=== PATIENT | male | born 1965 | race Asian ===

== ENCOUNTER 2020-02-23 16:57 | Inpatient (IN) | payer OTHER ==
[2020-02-23 17:37] VITALS: BMI 29.8
[2020-02-23] MEDS ORDERED: MAG HYDROX/AL HYDROX/SIMETH 30 ML UNIT-DOSE CUP PO PRN (18:52)
[2020-02-23] MEDS ORDERED: IBUPROFEN 400 MG TABLET (FP) PO PRN (18:52)
[2020-02-23] MEDS ORDERED: MENTHOL/PHENOL 1 EACH UD MM PRN (18:52)
[2020-02-23] MEDS ORDERED: NICOTINE POLACRILEX 2 MG GUM BUC PRN (18:52)
[2020-02-23] MEDS ORDERED: chlordiazePOXIDE HCL 25 MG CAPSULE PO PRN (18:52)
[2020-02-23] MEDS ORDERED: ACETAMINOPHEN 325 MG TABLET (FP) PO PRN ×2 (18:52)
[2020-02-23] MEDS ORDERED: MAGNESIUM HYDROX 2400MG/30ML ORAL SUSPENSION 30 ML CUP PO PRN (18:52)
[2020-02-23] MEDS ORDERED: ONDANSETRON *ODT* 4 MG TABLET SL PRN (18:52)
[2020-02-23] MEDS ORDERED: BISMUTH SUBSALICYLATE 524 MG/30 ML UD PO PRN (18:52)
[2020-02-23] MEDS ORDERED: MAGNESIUM CITRATE 300 ML BOTTLE PO PRN (18:52)
[2020-02-23] MEDS ORDERED: METHOCARBAMOL 500 MG TABLET PO PRN (18:52)
[2020-02-23] MEDS ORDERED: chlordiazePOXIDE HCL 25 MG CAPSULE PO ONE (20:00)
[2020-02-23] MEDS: NICOTINE 7 MG/24 HOURS TOPICAL PATCH TD SCH (20:42)
[2020-02-23] MEDS: chlordiazePOXIDE HCL 25 MG CAPSULE PO SCH ×2 (20:42→22:55)
[2020-02-23] MEDS: PRENATAL VITAMINS W/ FOLIC ACID TABLET (FP) PO SCH (20:44)
[2020-02-23] MEDS: hydrOXYzine PAMOATE 25 MG CAPSULE (FP) PO SCH (22:55)
[2020-02-23] MEDS: MELATONIN 5 MG TABLETS PO SCH (22:55)
[2020-02-23] MEDS: THIAMINE HCL 100 MG TABLET (FP) PO SCH (22:57)
[2020-02-24] MEDS: hydrOXYzine PAMOATE 25 MG CAPSULE (FP) PO SCH ×5 (06:39→22:27)
[2020-02-24] MEDS: chlordiazePOXIDE HCL 25 MG CAPSULE PO SCH ×2 (06:39→10:29)
[2020-02-24] MEDS: PRENATAL VITAMINS W/ FOLIC ACID TABLET (FP) PO SCH (10:29)
[2020-02-24] MEDS: NICOTINE 7 MG/24 HOURS TOPICAL PATCH TD SCH (10:29)
[2020-02-24 13:07] LABS: HEMATOCRIT 37.8 % (35.4-49); HEMOGLOBIN 12.2 GM/dL (11.7-16.9); MCH 33.4 pg (25.7-33.7); MCHC 32.2 g/dl (32.0-35.9); MEAN CELL VOLUME 103.6 fl (80-96); MEAN PLT VOLUME 12.1 fl (7.5-11.1); PLATELET COUNT 72 K/MM3 (134-434); RBC 3.65 M/mm3 (4.00-5.60); RDW 15.1 % (11.9-15.9); WHITE BLOOD COUNT 10.5 K/mm3 (4.0-10.0)
[2020-02-24 13:12] LABS: ALBUMIN 2.4 g/dl (3.4-5.0); BLOOD UREA NITROGEN 17.2 mg/dL (7-18); CALCIUM 7.6 mg/dL (8.5-10.1)
[2020-02-24 13:15] LABS: CREATININE 1.2 mg/dL (0.55-1.3)
[2020-02-24 13:16] LABS: BILIRUBIN,TOTAL 12.7 mg/dL (0.2-1); TOT PROT 6.5 g/dl (6.4-8.2)
[2020-02-24] MEDS ORDERED: LORazepam 1 MG TABLET PO PRN (13:29)
[2020-02-24 14:05] LABS: POTASSIUM 2.6 mmol/L (3.5-5.1)
[2020-02-24] MEDS ORDERED: POTASSIUM CHLORIDE ORAL LIQUID 20 MEQ/15 ML PO ONE ×2 (14:30→18:30)
[2020-02-24] MEDS: LORazepam 2 MG TABLET PO SCH ×2 (18:13→22:27)
[2020-02-24] MEDS: MELATONIN 5 MG TABLETS PO SCH (22:27)
[2020-02-24] MEDS: THIAMINE HCL 100 MG TABLET (FP) PO SCH (22:27)
[2020-02-25] MEDS ORDERED: chlordiazePOXIDE HCL 25 MG CAPSULE PO SCH (05:00)
[2020-02-25 06:14] VITALS: BP 102/72; PULSE 110; TEMP 96.8
[2020-02-25] MEDS: hydrOXYzine PAMOATE 25 MG CAPSULE (FP) PO SCH ×2 (07:24→10:03)
[2020-02-25] MEDS: LORazepam 2 MG TABLET PO SCH ×2 (07:24→10:03)
[2020-02-25] MEDS: PRENATAL VITAMINS W/ FOLIC ACID TABLET (FP) PO SCH (10:03)
[2020-02-25] MEDS: NICOTINE 7 MG/24 HOURS TOPICAL PATCH TD SCH (10:03)
[2020-02-26] MEDS ORDERED: chlordiazePOXIDE HCL 10 MG CAPSULE PO PRN
[2020-02-26] MEDS ORDERED: chlordiazePOXIDE HCL 10 MG CAPSULE PO SCH (05:00)
[2020-02-26] MEDS ORDERED: LORazepam 1 MG TABLET PO SCH (05:00)
[2020-02-27] MEDS ORDERED: LORazepam 0.5 MG TABLET PO PRN
[2020-02-27] MEDS ORDERED: LORazepam 0.5 MG TABLET PO SCH (05:00)
[2020-02-27] MEDS ORDERED: chlordiazePOXIDE HCL 10 MG CAPSULE PO SCH (05:00)
[2020-02-28] MEDS ORDERED: chlordiazePOXIDE HCL 10 MG CAPSULE PO ONE (05:00)
[2020-02-28] MEDS ORDERED: LORazepam 0.5 MG TABLET PO ONE (05:00)
== END 2020-02-25 10:43 | disposition short-term general hospital (02) | DRG 775 ==
LOC: YASAS 16:57 → Y3N 19:51
PROVIDERS: ADMIT Allergy & Immunology; ATTEND Allergy & Immunology
PROC: HZ2ZZZZ Detoxification Services for Substance Abuse Treatment (ICD-10-PCS; principal; 2020-02-23)
DX: F10.230 Alcohol dependence with withdrawal, uncomplicated (principal); F17.210 Nicotine dependence, cigarettes, uncomplicated; R00.0 Tachycardia, unspecified; R53.83 Other fatigue; R41.82 Altered mental status, unspecified; R60.0 Localized edema; K76.9 Liver disease, unspecified; E66.9 Obesity, unspecified; Z68.29 Body mass index [BMI] 29.0-29.9, adult; Z56.0 Unemployment, unspecified; Z59.0 Homelessness
CPT/HCPCS: 36415; 80053; 82962; 85027; 86780; 93005; 93010; C9803; U0003

== ENCOUNTER 2020-02-25 07:25 | Inpatient (IN) | payer OTHER ==
[2020-02-25] MEDS ORDERED: FOLIC ACID INJECTION - 1 MG, THIAMINE HCL 100 MG, MULTIVIT INJECTION ADULT 10 ML in SOD... IVPB ONE (07:32)
[2020-02-25] MEDS ORDERED: SODIUM CHLORIDE 1,000 ML IV STA (07:46)
[2020-02-25] MEDS ORDERED: VANCOMYCIN 1 GM in D5W (PRE-DOCKED) 1,000 MG/250 ML IVPB ONE (08:13)
[2020-02-25] MEDS ORDERED: CEFTRIAXONE 1,000 MG in DEXTROSE 5%-WATER - 50 ML IVPB ONE (08:13)
[2020-02-25] MEDS ORDERED: CEFTRIAXONE 1 GM/50 ML BAG ONE (08:22)
[2020-02-25 08:24] LABS: VENOUS BASE EXCESS 5.2 mmol/L (-2-2); VENOUS PCO2 39.9 mmHg (38-52); VENOUS PH 7.48 (7.310-7.410)
[2020-02-25 08:32] LABS: POTASSIUM 4.1 mmol/L (3.5-5.1)
[2020-02-25 08:35] LABS: ALBUMIN 2.2 g/dl (3.4-5.0); BLOOD UREA NITROGEN 15.4 mg/dL (7-18)
[2020-02-25 08:37] LABS: CALCIUM 8.2 mg/dL (8.5-10.1)
[2020-02-25 08:39] LABS: BILIRUBIN,TOTAL 14.6 mg/dL (0.2-1); CREATININE 0.9 mg/dL (0.55-1.3)
[2020-02-25 08:40] LABS: INR 1.42 (0.83-1.09)
[2020-02-25 08:41] LABS: TOT PROT 6.5 g/dl (6.4-8.2)
[2020-02-25 08:43] LABS: ACTIVATED PTT 29.8 SECONDS (25.2-36.5)
[2020-02-25 08:52] LABS: EPI CELLS 6 /uL (0-25.1); HYALINE CASTS 1 /uL (0-3.1); URINE APPEARANCE CLEAR; URINE BILIRUBIN 3+ (NEGATIVE); URINE COLOR DK YELLOW; URINE GLUCOSE (UA) NEGATIVE (NEGATIVE); URINE KETONE TRACE (NEGATIVE); URINE LEUK ESTERASE NEGATIVE (NEGATIVE); URINE NITRITE POSITIVE (NEGATIVE); URINE PROTEIN TRACE (NEGATIVE); URINE RBC 6 /uL (0-23.9); URINE WBC 6 /uL (0-25.8)
[2020-02-25 09:48] LABS: BASO % 0.4 % (0-2.0); EOS % 0.1 % (0-4.5); HEMATOCRIT 42.1 % (35.4-49); HEMOGLOBIN 13.4 GM/dL (11.7-16.9); LYMPH % 15.5 % (8-40); MCH 32.2 pg (25.7-33.7); MCHC 31.8 g/dl (32.0-35.9); MEAN CELL VOLUME 101.3 fl (80-96); MEAN PLT VOLUME 12.2 fl (7.5-11.1); MONO % 3.1 % (3.8-10.2); NEUT % 80.9 % (42.8-82.8); PLATELET COUNT 72 K/MM3 (134-434); RBC 4.16 M/mm3 (4.00-5.60); WHITE BLOOD COUNT 9.2 K/mm3 (4.0-10.0)
[2020-02-25 09:58] LABS: CHLORIDE 93 mmol/L (98-107); SODIUM 133 mmol/L (136-145)
[2020-02-25 10:01] LABS: BLOOD UREA NITROGEN 15.2 mg/dL (7-18); CALCIUM 7.5 mg/dL (8.5-10.1); CO2 26 mmol/L (21-32); GLUCOSE,RANDOM 108 mg/dL (74-106); MAGNESIUM 1.2 mg/dL (1.8-2.4)
[2020-02-25 10:04] LABS: CREATININE 0.9 mg/dL (0.55-1.3); SGOT/AST 323 U/L (15-37); SGPT/ALT 90 U/L (13-61)
[2020-02-25 10:05] LABS: TOT PROT 5.5 g/dl (6.4-8.2)
[2020-02-25 10:08] LABS: ALK PHOS 291 U/L (45-117); ANION GAP 13 MMOL/L (8-16); BILIRUBIN,TOTAL 12.4 mg/dL (0.2-1)
[2020-02-25] MEDS ORDERED: MAGNESIUM SULF 50% (8.12 MEQ/2 ML-1 GM VIAL) IVPB ONE ×2 (10:15→17:50)
[2020-02-25] MEDS ORDERED: MAGNESIUM SULFATE IN WATER 2 GM/50 ML IVPB IVPB ONE ×2 (10:23→18:02)
[2020-02-25] MEDS ORDERED: SODIUM CHLORIDE 0.9% 500 ML INFUS.BAG IV ONE (10:31)
[2020-02-25 10:41] LABS: POTASSIUM 2.9 mmol/L (3.5-5.1)
[2020-02-25] MEDS ORDERED: POTASSIUM CHLORIDE 20 MEQ PREMIX IVPB 100 ML IVPB SCH (10:45)
[2020-02-25] MEDS ORDERED: KCL 10 MEQ IVPB 20 MEQ/200 ML INFUS.BAG IVPB ONE (10:47)
[2020-02-25] MEDS: KCL 10 MEQ IVPB 10 MEQ/100 ML INFUS.BAG IVPB SCH ×4 (10:52→23:11)
[2020-02-25 11:35] LABS: URINE CRYSTALS BILIRUBIN CRYSTALS /hpf
[2020-02-25] MEDS ORDERED: LORazepam 2 MG/ML SDV VIAL ONE (12:36)
[2020-02-25 12:56] LABS: AMYLASE 57 U/L (25-115)
[2020-02-25] MEDS ORDERED: POTASSIUM CHLORIDE ORAL LIQUID 20 MEQ/15 ML PO ONE (14:44)
[2020-02-25 15:06] LABS: COCAINE, UR NEGATIVE ng/ml (CUTOFF=300); METHADONE, UR NEGATIVE ng/ml (CUTOFF=300); OPIATES, URI NEGATIVE ng/ml (CUTOFF=300); URINE AMPHETAMINES NEGATIVE ng/ml (CUTOFF=500); URINE BARBITURATES NEGATIVE ng/ml (CUTOFF=200)
[2020-02-25 15:07] LABS: PHENCYCLIDINE,URINE NEGATIVE ng/ml (CUTOFF=25)
[2020-02-25] MEDS ORDERED: POTASSIUM CHLORIDE ORAL LIQUID 20 MEQ/15 ML ONE (15:15)
[2020-02-25 15:22] LABS: URINE BENZODIAZEPINES POSITIVE ng/ml (CUTOFF=200)
[2020-02-25] MEDS ORDERED: THIAMINE HCL 200 MG/2 ML VIAL IVPB ONE (16:05)
[2020-02-25] MEDS ORDERED: THIAMINE HCL 200 MG/2 ML VIAL ONE (16:29)
[2020-02-25] MEDS ORDERED: HEPARIN NA (PORCINE) 5,000 UNITS/ML 1ML VIAL ONE (17:50)
[2020-02-25] MEDS ORDERED: PIPERACILLIN/TAZOB 3.375 GM 3.375 GM/50 ML BAG IVPB ONE (17:51)
[2020-02-25] MEDS: PIPERACILLIN/TAZOB 3.375 GM 3.375 GM in DEXTROSE 5%-WATER - 50 ML IVPB SCH (17:59)
[2020-02-25] MEDS: HEPARIN NA (PORCINE) 5,000 UNITS/ML 1ML VIAL SQ SCH (17:59)
[2020-02-25] MEDS ORDERED: PIPERACILLIN/TAZOB 3.375 GM 3.375 GM in DEXTROSE 5%-WATER - 50 ML IVPB SCH (18:00)
[2020-02-25] MEDS: LACTATED RINGERS SOLUTION 1,000 ML/1,000 ML INFUS.BAG IV SCH (18:25)
[2020-02-25] MEDS ORDERED: LACTULOSE 20 GM/30 ML UDC (FOR ORAL USE ONLY) ONE (18:26)
[2020-02-25] MEDS: LACTULOSE 20 GM/30 ML UDC (FOR ORAL USE ONLY) NGT SCH ×2 (18:29→22:37)
[2020-02-25] MEDS: LORazepam 1 MG TABLET PO SCH ×2 (19:22→21:33)
[2020-02-25 20:44] LABS: POTASSIUM 3.4 mmol/L (3.5-5.1)
[2020-02-25 20:47] LABS: BLOOD UREA NITROGEN 16.2 mg/dL (7-18); CALCIUM 7.4 mg/dL (8.5-10.1)
[2020-02-25] MEDS ORDERED: LORazepam 1 MG TABLET ONE (21:19)
[2020-02-25] MEDS ORDERED: KCL 10 MEQ IVPB 10 MEQ/100 ML INFUS.BAG IVPB ONE (21:20)
[2020-02-25] MEDS: LORazepam 1 MG TABLET PO PRN (22:35)
[2020-02-25] MEDS: PrednisoLONE 15 MG/5 ML UNIT-DOSE CUP NGT SCH (22:37)
[2020-02-25] MEDS: CHLORHEXIDINE GLUCONATE 4% CLEANSER FOR DECOLONIZATION TP SCH (22:37)
[2020-02-25] MEDS: MUPIROCIN 2% TOPICAL OINTMENT FOR DECOLONIZATION NS SCH (22:37)
[2020-02-25] MEDS ORDERED: MORPHINE SULFATE 2 MG/ML VIAL IM ONE (22:53)
[2020-02-25] MEDS ORDERED: morphine CARPU-JECT 2 MG/1 ML DISP.SYRIN IM ONE (22:53)
[2020-02-25] MEDS ORDERED: MORPHINE SULFATE 2 MG/ML VIAL ONE (22:56)
[2020-02-25] MEDS ORDERED: DEXTROSE 5%-WATER - 50 ML IVPB ONE ×2 (23:53→23:54)
[2020-02-25] MEDS ORDERED: PIPERACILLIN/TAZOBACTAM 3.375 GM VIAL IVPB ONE ×2 (23:53→23:54)
[2020-02-26] MEDS: LORazepam 1 MG TABLET PO SCH (00:14)
[2020-02-26] MEDS: KCL 10 MEQ IVPB 10 MEQ/100 ML INFUS.BAG IVPB SCH (00:14)
[2020-02-26] MEDS: PIPERACILLIN/TAZOB 3.375 GM 3.375 GM in DEXTROSE 5%-WATER - 50 ML IVPB SCH ×4 (01:47→22:58)
[2020-02-26] MEDS: LORazepam 1 MG TABLET PO PRN (02:25)
[2020-02-26] MEDS: HEPARIN NA (PORCINE) 5,000 UNITS/ML 1ML VIAL SQ SCH ×3 (02:25→18:21)
[2020-02-26] MEDS: LORazepam 0.5 MG TABLET PO SCH ×4 (04:38→22:58)
[2020-02-26] MEDS: LACTULOSE 20 GM/30 ML UDC (FOR ORAL USE ONLY) NGT SCH (07:08)
[2020-02-26 07:30] LABS: BASO % 0.1 % (0-2.0); EOS % 0.2 % (0-4.5); HEMATOCRIT 32.2 % (35.4-49); HEMOGLOBIN 10.1 GM/dL (11.7-16.9); LYMPH % 14.4 % (8-40); MCH 31.4 pg (25.7-33.7); MCHC 31.4 g/dl (32.0-35.9); MEAN CELL VOLUME 99.8 fl (80-96); MEAN PLT VOLUME 11.9 fl (7.5-11.1); MONO % 4.6 % (3.8-10.2); NEUT % 80.7 % (42.8-82.8); PLATELET COUNT 72 K/MM3 (134-434); POTASSIUM 3.3 mmol/L (3.5-5.1); RBC 3.22 M/mm3 (4.00-5.60); RDW 14.9 % (11.9-15.9); WHITE BLOOD COUNT 14.1 K/mm3 (4.0-10.0)
[2020-02-26 07:37] LABS: CALCIUM 7.7 mg/dL (8.5-10.1)
[2020-02-26 07:38] LABS: ALBUMIN 1.9 g/dl (3.4-5.0); BLOOD UREA NITROGEN 13.8 mg/dL (7-18); MAGNESIUM 1.9 mg/dL (1.8-2.4)
[2020-02-26 07:40] LABS: TOT PROT 5.4 g/dl (6.4-8.2)
[2020-02-26 07:41] LABS: CREATININE 0.8 mg/dL (0.55-1.3)
[2020-02-26 07:59] LABS: BILIRUBIN,TOTAL 15.1 mg/dL (0.2-1)
[2020-02-26 08:34] LABS: PHOSPHOROUS 0.6 mg/dL (2.5-4.9)
[2020-02-26] MEDS ORDERED: PIPERACILLIN/TAZOBACTAM 3.375 GM VIAL IVPB ONE ×3 (08:56→21:06)
[2020-02-26] MEDS ORDERED: DEXTROSE 5%-WATER - 50 ML IVPB ONE ×3 (08:56→21:07)
[2020-02-26] MEDS: THIAMINE HCL 200 MG/2 ML VIAL IVPB SCH (09:15)
[2020-02-26] MEDS ORDERED: POTASSIUM PHOSPHATE 40 MM in SODIUM CHLORIDE 500 ML IVPB ONE (09:30)
[2020-02-26] MEDS ORDERED: PT OWN MED DRAWER 7, Y5N ONE (10:12)
[2020-02-26] MEDS: FOLIC ACID 5 MG/1 ML SQ SCH (10:14)
[2020-02-26] MEDS: PrednisoLONE 15 MG/5 ML UNIT-DOSE CUP NGT SCH (10:14)
[2020-02-26] MEDS: MUPIROCIN 2% TOPICAL OINTMENT FOR DECOLONIZATION NS SCH ×2 (10:28→22:58)
[2020-02-26 12:36] LABS: INR 1.45 (0.83-1.09); PROTHROMBIN TIME (PATIENT) 17.6 SEC (9.7-13.0)
[2020-02-26] MEDS: LORazepam 2 MG/ML SDV VIAL IVPUSH PRN (22:05)
[2020-02-26] MEDS: LACTATED RINGERS SOLUTION 1,000 ML/1,000 ML INFUS.BAG IV SCH (22:58)
[2020-02-26] MEDS: PANTOPRAZOLE SODIUM 40 MG VIAL IVPUSH SCH (22:58)
[2020-02-26] MEDS: CHLORHEXIDINE GLUCONATE 4% CLEANSER FOR DECOLONIZATION TP SCH (22:58)
[2020-02-27] MEDS ORDERED: PIPERACILLIN/TAZOBACTAM 3.375 GM VIAL IVPB ONE ×4 (01:19→22:02)
[2020-02-27] MEDS ORDERED: DEXTROSE 5%-WATER - 50 ML IVPB ONE ×4 (01:19→22:02)
[2020-02-27] MEDS: PIPERACILLIN/TAZOB 3.375 GM 3.375 GM in DEXTROSE 5%-WATER - 50 ML IVPB SCH ×4 (02:24→21:00)
[2020-02-27] MEDS: LORazepam 2 MG/ML SDV VIAL IVPUSH PRN (04:00)
[2020-02-27] MEDS ORDERED: LORazepam 0.5 MG TABLET PO ONE (05:00)
[2020-02-27] MEDS: HEPARIN NA (PORCINE) 5,000 UNITS/ML 1ML VIAL SQ SCH ×3 (06:55→17:39)
[2020-02-27 07:10] LABS: BASO % 0.1 % (0-2.0); EOS % 1.3 % (0-4.5); HEMATOCRIT 31.9 % (35.4-49); HEMOGLOBIN 10.1 GM/dL (11.7-16.9); LYMPH % 22.7 % (8-40); MCH 31.7 pg (25.7-33.7); MCHC 31.6 g/dl (32.0-35.9); MEAN CELL VOLUME 100.3 fl (80-96); MEAN PLT VOLUME 10.2 fl (7.5-11.1); NEUT % 67.9 % (42.8-82.8); PLATELET COUNT 93 K/MM3 (134-434); RBC 3.18 M/mm3 (4.00-5.60); RDW 14.4 % (11.9-15.9); WHITE BLOOD COUNT 14.5 K/mm3 (4.0-10.0)
[2020-02-27 07:15] LABS: INR 1.29 (0.83-1.09); PROTHROMBIN TIME (PATIENT) 15.8 SEC (9.7-13.0)
[2020-02-27 07:16] LABS: ACTIVATED PTT 26.8 SECONDS (25.2-36.5)
[2020-02-27 07:19] LABS: ALBUMIN 1.8 g/dl (3.4-5.0); BLOOD UREA NITROGEN 12.2 mg/dL (7-18); MAGNESIUM 1.6 mg/dL (1.8-2.4)
[2020-02-27 07:21] LABS: CALCIUM 7.8 mg/dL (8.5-10.1)
[2020-02-27 07:22] LABS: CREATININE 0.7 mg/dL (0.55-1.3)
[2020-02-27 07:24] LABS: IRON SERUM 62 ug/dL (50-175); TOT PROT 5.2 g/dl (6.4-8.2)
[2020-02-27 07:25] LABS: TOTAL IRON BINDING CAPACITY 117 ug/dL (250-450)
[2020-02-27 07:28] LABS: POTASSIUM 2.7 mmol/L (3.5-5.1)
[2020-02-27 07:29] LABS: BILIRUBIN,TOTAL 15.4 mg/dL (0.2-1)
[2020-02-27] MEDS: FOLIC ACID 5 MG/1 ML SQ SCH (09:38)
[2020-02-27] MEDS: MUPIROCIN 2% TOPICAL OINTMENT FOR DECOLONIZATION NS SCH ×2 (09:38→22:00)
[2020-02-27] MEDS: NICOTINE 14 MG/24 HOURS TOPICAL PATCH TD SCH (09:39)
[2020-02-27] MEDS: PANTOPRAZOLE SODIUM 40 MG VIAL IVPUSH SCH ×2 (09:39→22:00)
[2020-02-27] MEDS: THIAMINE HCL 200 MG/2 ML VIAL IVPB SCH (09:40)
[2020-02-27] MEDS: LACTATED RINGERS SOLUTION 1,000 ML/1,000 ML INFUS.BAG IV SCH ×2 (09:40→16:46)
[2020-02-27] MEDS: PrednisoLONE 15 MG/5 ML UNIT-DOSE CUP NGT SCH ×2 (09:40→11:21)
[2020-02-27] MEDS ORDERED: NICOTINE 14 MG/24 HOURS TOPICAL PATCH TD SCH (10:00)
[2020-02-27] MEDS ORDERED: POTASSIUM PHOSPHATE 15 MM in DEXTROSE 5%-WATER - 250 ML IVPB ONE (10:13)
[2020-02-27] MEDS ORDERED: POTASSIUM CHLORIDE TABS 20 MEQ TABLET.ER (FP) PO ONE (10:14)
[2020-02-27] MEDS ORDERED: ACETAMINOPHEN 1000 MG/100 ML VIAL (NON FORMULARY) IVPB PRN (10:20)
[2020-02-27 10:32] LABS: ANISOCYTOSIS 1+; MACROCYTOSIS 1+; PLATELET ESTIMATE DECREASED
[2020-02-27] MEDS ORDERED: oxyCODONE HCL 5 MG TABLET PO PRN (10:42)
[2020-02-27] MEDS ORDERED: PT OWN MED DRAWER 7, Y5N ONE (18:07)
[2020-02-27] MEDS: RIFAXIMIN 550 MG TABLET (UD) PO SCH (22:00)
[2020-02-27] MEDS: CHLORHEXIDINE GLUCONATE 4% CLEANSER FOR DECOLONIZATION TP SCH (22:42)
[2020-02-28] MEDS ORDERED: LORazepam 0.5 MG TABLET PO PRN
[2020-02-28] MEDS: HEPARIN NA (PORCINE) 5,000 UNITS/ML 1ML VIAL SQ SCH ×3 (02:30→18:16)
[2020-02-28] MEDS: PIPERACILLIN/TAZOB 3.375 GM 3.375 GM in DEXTROSE 5%-WATER - 50 ML IVPB SCH ×4 (03:00→21:00)
[2020-02-28] MEDS ORDERED: PIPERACILLIN/TAZOBACTAM 3.375 GM VIAL IVPB ONE ×4 (03:05→22:04)
[2020-02-28] MEDS ORDERED: DEXTROSE 5%-WATER - 50 ML IVPB ONE ×4 (03:06→22:04)
[2020-02-28 07:06] LABS: HEMATOCRIT 29.4 % (35.4-49); HEMOGLOBIN 9.6 GM/dL (11.7-16.9); MCH 32.7 pg (25.7-33.7); MCHC 32.7 g/dl (32.0-35.9); MEAN PLT VOLUME 9.4 fl (7.5-11.1); PLATELET COUNT 111 K/MM3 (134-434); RBC 2.94 M/mm3 (4.00-5.60); RDW 14.8 % (11.9-15.9)
[2020-02-28 07:13] LABS: INR 1.2 (0.83-1.09); PROTHROMBIN TIME (PATIENT) 14.5 SEC (9.7-13.0)
[2020-02-28 07:16] LABS: ACTIVATED PTT 26.4 SECONDS (25.2-36.5)
[2020-02-28 07:24] LABS: ALBUMIN 1.6 g/dl (3.4-5.0); CALCIUM 7.3 mg/dL (8.5-10.1)
[2020-02-28 07:25] LABS: BLOOD UREA NITROGEN 12.5 mg/dL (7-18); MAGNESIUM 1.6 mg/dL (1.8-2.4)
[2020-02-28 07:27] LABS: BILIRUBIN,DIRECT 12.4 mg/dL (0.0-0.2)
[2020-02-28 07:28] LABS: CREATININE 0.6 mg/dL (0.55-1.3); PHOSPHOROUS 1.5 mg/dL (2.5-4.9)
[2020-02-28 07:29] LABS: TOT PROT 4.8 g/dl (6.4-8.2)
[2020-02-28] MEDS ORDERED: POTASSIUM PHOSPHATE 30 MM in SODIUM CHLORIDE 500 ML IVPB ONE (08:15)
[2020-02-28] MEDS ORDERED: MAGNESIUM 1GM/D5W - 2 GM/200 ML IVPB IVPB ONE (08:15)
[2020-02-28] MEDS: KCL 10 MEQ IVPB 10 MEQ/100 ML INFUS.BAG IVPB SCH ×3 (08:38→10:46)
[2020-02-28 08:42] LABS: POTASSIUM 2.8 mmol/L (3.5-5.1)
[2020-02-28] MEDS: MAGNESIUM 1GM/D5W - 1 GM/100 ML IVPB IVPB SCH ×2 (08:51→10:06)
[2020-02-28] MEDS ORDERED: PT OWN MED DRAWER 7, Y5N ONE ×2 (09:05→11:09)
[2020-02-28] MEDS: PrednisoLONE 15 MG/5 ML UNIT-DOSE CUP NGT SCH (09:10)
[2020-02-28] MEDS: NICOTINE 14 MG/24 HOURS TOPICAL PATCH TD SCH (09:10)
[2020-02-28] MEDS: RIFAXIMIN 550 MG TABLET (UD) PO SCH ×2 (09:10→22:00)
[2020-02-28] MEDS: PANTOPRAZOLE SODIUM 40 MG VIAL IVPUSH SCH ×2 (09:10→22:00)
[2020-02-28] MEDS: THIAMINE HCL 200 MG/2 ML VIAL IVPB SCH (09:11)
[2020-02-28] MEDS: MUPIROCIN 2% TOPICAL OINTMENT FOR DECOLONIZATION NS SCH ×2 (09:11→22:00)
[2020-02-28] MEDS: FOLIC ACID 5 MG/1 ML SQ SCH (11:10)
[2020-02-28 17:11] LABS: POTASSIUM 3.6 mmol/L (3.5-5.1)
[2020-02-28 17:12] LABS: CALCIUM 7.1 mg/dL (8.5-10.1)
[2020-02-28 17:13] LABS: ALBUMIN 1.7 g/dl (3.4-5.0); BLOOD UREA NITROGEN 9.4 mg/dL (7-18)
[2020-02-28 17:16] LABS: CREATININE 0.7 mg/dL (0.55-1.3)
[2020-02-28 17:18] LABS: TOT PROT 5.2 g/dl (6.4-8.2)
[2020-02-28] MEDS ORDERED: POTASSIUM CHLORIDE ORAL LIQUID 20 MEQ/15 ML PO ONE (17:27)
[2020-02-28] MEDS: LACTATED RINGERS SOLUTION 1,000 ML/1,000 ML INFUS.BAG IV SCH (18:16)
[2020-02-28] MEDS: CHLORHEXIDINE GLUCONATE 4% CLEANSER FOR DECOLONIZATION TP SCH (22:00)
[2020-02-29] MEDS: HEPARIN NA (PORCINE) 5,000 UNITS/ML 1ML VIAL SQ SCH ×3 (02:00→17:59)
[2020-02-29] MEDS: PIPERACILLIN/TAZOB 3.375 GM 3.375 GM in DEXTROSE 5%-WATER - 50 ML IVPB SCH ×4 (03:00→22:30)
[2020-02-29] MEDS ORDERED: PIPERACILLIN/TAZOBACTAM 3.375 GM VIAL IVPB ONE ×4 (03:22→22:19)
[2020-02-29] MEDS ORDERED: DEXTROSE 5%-WATER - 50 ML IVPB ONE ×4 (03:22→22:19)
[2020-02-29] MEDS ORDERED: PT OWN MED DRAWER 7, Y5N ONE ×2 (09:52→09:53)
[2020-02-29] MEDS: FOLIC ACID 5 MG/1 ML SQ SCH (09:57)
[2020-02-29] MEDS: MUPIROCIN 2% TOPICAL OINTMENT FOR DECOLONIZATION NS SCH ×2 (09:57→22:30)
[2020-02-29] MEDS: PANTOPRAZOLE SODIUM 40 MG VIAL IVPUSH SCH ×2 (09:58→22:30)
[2020-02-29] MEDS: THIAMINE HCL 200 MG/2 ML VIAL IVPB SCH (09:58)
[2020-02-29] MEDS: RIFAXIMIN 550 MG TABLET (UD) PO SCH ×2 (09:58→22:30)
[2020-02-29] MEDS: NICOTINE 14 MG/24 HOURS TOPICAL PATCH TD SCH (11:24)
[2020-02-29] MEDS: PrednisoLONE 15 MG/5 ML UNIT-DOSE CUP NGT SCH (11:24)
[2020-02-29 14:07] LABS: TRANSGLUTAMINASE IGA < 2 U/mL (0-3); TRANSGLUTAMINASE IGG 8 U/mL (0-5)
[2020-02-29] MEDS: LACTATED RINGERS SOLUTION 1,000 ML/1,000 ML INFUS.BAG IV SCH (17:59)
[2020-02-29] MEDS: CHLORHEXIDINE GLUCONATE 4% CLEANSER FOR DECOLONIZATION TP SCH (22:30)
[2020-02-29] MEDS: VANCOMYCIN 250 MG/5 ML ORAL SOLUTION PO SCH (23:12)
[2020-03-01] MEDS: PIPERACILLIN/TAZOB 3.375 GM 3.375 GM in DEXTROSE 5%-WATER - 50 ML IVPB SCH ×4 (03:45→21:27)
[2020-03-01] MEDS: HEPARIN NA (PORCINE) 5,000 UNITS/ML 1ML VIAL SQ SCH ×3 (03:45→18:14)
[2020-03-01] MEDS ORDERED: PIPERACILLIN/TAZOBACTAM 3.375 GM VIAL IVPB ONE ×4 (03:57→20:50)
[2020-03-01] MEDS ORDERED: DEXTROSE 5%-WATER - 50 ML IVPB ONE ×4 (03:57→20:51)
[2020-03-01] MEDS: VANCOMYCIN 250 MG/5 ML ORAL SOLUTION PO SCH ×4 (06:23→23:43)
[2020-03-01 07:41] LABS: INR 1.21 (0.83-1.09); PROTHROMBIN TIME (PATIENT) 14.6 SEC (9.7-13.0)
[2020-03-01] MEDS ORDERED: PT OWN MED DRAWER 7, Y5N ONE (08:52)
[2020-03-01] MEDS: PrednisoLONE 15 MG/5 ML UNIT-DOSE CUP NGT SCH (09:14)
[2020-03-01] MEDS: PANTOPRAZOLE SODIUM 40 MG VIAL IVPUSH SCH (09:14)
[2020-03-01] MEDS: THIAMINE HCL 200 MG/2 ML VIAL IVPB SCH (09:14)
[2020-03-01] MEDS: RIFAXIMIN 550 MG TABLET (UD) PO SCH ×2 (09:14→21:27)
[2020-03-01] MEDS: FOLIC ACID 5 MG/1 ML SQ SCH (09:15)
[2020-03-01] MEDS: MUPIROCIN 2% TOPICAL OINTMENT FOR DECOLONIZATION NS SCH (09:15)
[2020-03-01] MEDS: NICOTINE 14 MG/24 HOURS TOPICAL PATCH TD SCH (09:15)
[2020-03-01] MEDS ORDERED: ONDANSETRON 4 MG/2 ML VIAL IVPUSH PRN (14:39)
[2020-03-01] MEDS: LORazepam 2 MG/ML SDV VIAL IVPUSH PRN (15:00)
[2020-03-01] MEDS: LACTATED RINGERS SOLUTION 1,000 ML/1,000 ML INFUS.BAG IV SCH (18:13)
[2020-03-01] MEDS: CHLORHEXIDINE GLUCONATE 4% CLEANSER FOR DECOLONIZATION TP SCH (21:28)
[2020-03-02] MEDS ORDERED: PIPERACILLIN/TAZOBACTAM 3.375 GM VIAL IVPB ONE ×4 (01:39→20:56)
[2020-03-02] MEDS ORDERED: DEXTROSE 5%-WATER - 50 ML IVPB ONE ×4 (01:39→20:56)
[2020-03-02] MEDS: HEPARIN NA (PORCINE) 5,000 UNITS/ML 1ML VIAL SQ SCH ×3 (02:15→18:06)
[2020-03-02] MEDS: PIPERACILLIN/TAZOB 3.375 GM 3.375 GM in DEXTROSE 5%-WATER - 50 ML IVPB SCH ×4 (02:16→21:41)
[2020-03-02] MEDS: VANCOMYCIN 250 MG/5 ML ORAL SOLUTION PO SCH ×4 (06:10→23:20)
[2020-03-02 07:22] LABS: POTASSIUM 4.1 mmol/L (3.5-5.1)
[2020-03-02 07:26] LABS: BASO % 0.7 % (0-2.0); EOS % 0.6 % (0-4.5); HEMATOCRIT 33.5 % (35.4-49); HEMOGLOBIN 10.8 GM/dL (11.7-16.9); LYMPH % 26.7 % (8-40); MCH 33.1 pg (25.7-33.7); MCHC 32.2 g/dl (32.0-35.9); MEAN CELL VOLUME 102.7 fl (80-96); MEAN PLT VOLUME 10.5 fl (7.5-11.1); MONO % 8.9 % (3.8-10.2); NEUT % 63.1 % (42.8-82.8); PLATELET COUNT 132 K/MM3 (134-434); RBC 3.26 M/mm3 (4.00-5.60); RDW 16.7 % (11.9-15.9); WHITE BLOOD COUNT 11.6 K/mm3 (4.0-10.0)
[2020-03-02 07:29] LABS: ALBUMIN 1.6 g/dl (3.4-5.0); BLOOD UREA NITROGEN 7.8 mg/dL (7-18); CALCIUM 7.2 mg/dL (8.5-10.1); MAGNESIUM 1.5 mg/dL (1.8-2.4)
[2020-03-02 07:32] LABS: CREATININE 0.7 mg/dL (0.55-1.3); PHOSPHOROUS 2.1 mg/dL (2.5-4.9)
[2020-03-02 07:34] LABS: TOT PROT 5.1 g/dl (6.4-8.2)
[2020-03-02] MEDS ORDERED: MAGNESIUM SULF 50% (8.12 MEQ/2 ML-1 GM VIAL) IVPB ONE (08:30)
[2020-03-02] MEDS ORDERED: PT OWN MED DRAWER 7, Y5N ONE ×2 (10:09→21:46)
[2020-03-02] MEDS: FOLIC ACID 5 MG/1 ML SQ SCH (10:29)
[2020-03-02] MEDS: NICOTINE 14 MG/24 HOURS TOPICAL PATCH TD SCH (10:31)
[2020-03-02] MEDS: RIFAXIMIN 550 MG TABLET (UD) PO SCH ×2 (10:32→21:41)
[2020-03-02] MEDS: MULTIVITAMINS (DAILY MVI) TABLET (FP) PO SCH (10:33)
[2020-03-02] MEDS: THIAMINE HCL 200 MG/2 ML VIAL IVPB SCH (10:37)
[2020-03-02 11:13] LABS: ANISOCYTOSIS 1+; MACROCYTOSIS 1+; PLATELET ESTIMATE DECREASED; TARGET CELLS 1+
[2020-03-02] MEDS: CHLORHEXIDINE GLUCONATE 4% CLEANSER FOR DECOLONIZATION TP SCH (21:41)
[2020-03-03] MEDS ORDERED: PIPERACILLIN/TAZOBACTAM 3.375 GM VIAL IVPB ONE ×4 (00:27→21:11)
[2020-03-03] MEDS ORDERED: DEXTROSE 5%-WATER - 50 ML IVPB ONE ×4 (00:28→21:11)
[2020-03-03] MEDS: HEPARIN NA (PORCINE) 5,000 UNITS/ML 1ML VIAL SQ SCH ×3 (02:20→17:42)
[2020-03-03] MEDS: PIPERACILLIN/TAZOB 3.375 GM 3.375 GM in DEXTROSE 5%-WATER - 50 ML IVPB SCH ×4 (02:20→21:45)
[2020-03-03] MEDS: VANCOMYCIN 250 MG/5 ML ORAL SOLUTION PO SCH ×4 (05:52→23:06)
[2020-03-03] MEDS ORDERED: PT OWN MED DRAWER 7, Y5N ONE ×3 (05:53→09:27)
[2020-03-03 06:48] LABS: POTASSIUM 3.5 mmol/L (3.5-5.1)
[2020-03-03 06:50] LABS: ALBUMIN 1.5 g/dl (3.4-5.0); CALCIUM 7.5 mg/dL (8.5-10.1)
[2020-03-03 06:54] LABS: CREATININE 0.7 mg/dL (0.55-1.3)
[2020-03-03 06:55] LABS: BILIRUBIN,TOTAL 12.7 mg/dL (0.2-1); TOT PROT 4.9 g/dl (6.4-8.2)
[2020-03-03 07:16] LABS: BASO % 0.8 % (0-2.0); EOS % 1.4 % (0-4.5); HEMATOCRIT 30.9 % (35.4-49); HEMOGLOBIN 10.2 GM/dL (11.7-16.9); LYMPH % 20.9 % (8-40); MCH 33.2 pg (25.7-33.7); MCHC 32.8 g/dl (32.0-35.9); MEAN CELL VOLUME 101.3 fl (80-96); MEAN PLT VOLUME 10.2 fl (7.5-11.1); MONO % 6.4 % (3.8-10.2); NEUT % 70.5 % (42.8-82.8); PLATELET COUNT 153 K/MM3 (134-434); RBC 3.05 M/mm3 (4.00-5.60); RDW 16.2 % (11.9-15.9); WHITE BLOOD COUNT 12.9 K/mm3 (4.0-10.0)
[2020-03-03 08:18] LABS: MAGNESIUM 1.7 mg/dL (1.8-2.4)
[2020-03-03 08:22] LABS: PHOSPHOROUS 2.2 mg/dL (2.5-4.9)
[2020-03-03] MEDS: FOLIC ACID 5 MG/1 ML SQ SCH (09:48)
[2020-03-03] MEDS: NICOTINE 14 MG/24 HOURS TOPICAL PATCH TD SCH (09:49)
[2020-03-03] MEDS: RIFAXIMIN 550 MG TABLET (UD) PO SCH ×2 (09:50→23:06)
[2020-03-03] MEDS: MULTIVITAMINS (DAILY MVI) TABLET (FP) PO SCH (09:50)
[2020-03-03] MEDS: THIAMINE HCL 200 MG/2 ML VIAL IVPB SCH (09:50)
[2020-03-03 10:53] LABS: ANISOCYTOSIS 2+; MACROCYTOSIS 1+; PLATELET ESTIMATE DECREASED; TEAR DROP CELLS 1+; TOXIC GRANULATION 2+
[2020-03-03 11:09] LABS: INR 1.13 (0.83-1.09); PROTHROMBIN TIME (PATIENT) 13.9 SEC (9.7-13.0)
[2020-03-03 11:25] LABS: ALBUMIN 1.6 g/dl (3.4-5.0)
[2020-03-03 11:28] LABS: BILIRUBIN,DIRECT 11.8 mg/dL (0.0-0.2)
[2020-03-03 11:30] LABS: BILIRUBIN,TOTAL 13.7 mg/dL (0.2-1); TOT PROT 5.2 g/dl (6.4-8.2)
[2020-03-03 21:19] LABS: INR 1.15 (0.83-1.09); PROTHROMBIN TIME (PATIENT) 14.1 SEC (9.7-13.0)
[2020-03-03 21:33] LABS: ALBUMIN 1.6 g/dl (3.4-5.0)
[2020-03-03 21:35] LABS: BILIRUBIN,DIRECT 12.1 mg/dL (0.0-0.2)
[2020-03-03 21:38] LABS: BILIRUBIN,TOTAL 14.3 mg/dL (0.2-1); TOT PROT 5.3 g/dl (6.4-8.2)
[2020-03-03] MEDS: CHLORHEXIDINE GLUCONATE 4% CLEANSER FOR DECOLONIZATION TP SCH (22:05)
[2020-03-03] MEDS: guaiFENesin 200 MG/10 ML 10 ML UNIT-DOSE CUPS PO PRN (23:06)
[2020-03-04] MEDS ORDERED: DEXTROSE 5%-WATER - 50 ML IVPB ONE ×4 (01:10→22:52)
[2020-03-04] MEDS ORDERED: PIPERACILLIN/TAZOBACTAM 3.375 GM VIAL IVPB ONE ×4 (01:10→22:52)
[2020-03-04] MEDS: PIPERACILLIN/TAZOB 3.375 GM 3.375 GM in DEXTROSE 5%-WATER - 50 ML IVPB SCH ×4 (02:10→23:00)
[2020-03-04] MEDS: HEPARIN NA (PORCINE) 5,000 UNITS/ML 1ML VIAL SQ SCH ×4 (02:10→22:59)
[2020-03-04] MEDS: VANCOMYCIN 250 MG/5 ML ORAL SOLUTION PO SCH ×3 (06:14→17:32)
[2020-03-04 07:45] LABS: EOS % 0.8 % (0-4.5); HEMATOCRIT 32.1 % (35.4-49); HEMOGLOBIN 10.6 GM/dL (11.7-16.9); INR 1.14 (0.83-1.09); LYMPH % 17.7 % (8-40); MCH 33.2 pg (25.7-33.7); MCHC 33.1 g/dl (32.0-35.9); MEAN CELL VOLUME 100.5 fl (80-96); MEAN PLT VOLUME 10.1 fl (7.5-11.1); MONO % 4.8 % (3.8-10.2); NEUT % 75.7 % (42.8-82.8); PLATELET COUNT 186 K/MM3 (134-434); RBC 3.19 M/mm3 (4.00-5.60); RDW 16.7 % (11.9-15.9); WHITE BLOOD COUNT 15.9 K/mm3 (4.0-10.0)
[2020-03-04 08:08] LABS: MAGNESIUM 1.6 mg/dL (1.8-2.4)
[2020-03-04 08:09] LABS: ALBUMIN 1.6 g/dl (3.4-5.0)
[2020-03-04 08:11] LABS: BILIRUBIN,DIRECT 11.7 mg/dL (0.0-0.2); PHOSPHOROUS 2.5 mg/dL (2.5-4.9)
[2020-03-04 08:12] LABS: SGOT/AST 89 U/L (15-37); SGPT/ALT 72 U/L (13-61)
[2020-03-04 08:13] LABS: BILIRUBIN,TOTAL 14.5 mg/dL (0.2-1); TOT PROT 5.1 g/dl (6.4-8.2)
[2020-03-04 08:14] LABS: ALK PHOS 272 U/L (45-117)
[2020-03-04] MEDS ORDERED: PT OWN MED DRAWER 7, Y5N ONE (09:57)
[2020-03-04] MEDS: THIAMINE HCL 200 MG/2 ML VIAL IVPB SCH (10:07)
[2020-03-04 10:08] LABS: CHLORIDE 102 mmol/L (98-107); POTASSIUM 3.5 mmol/L (3.5-5.1); SODIUM 136 mmol/L (136-145)
[2020-03-04] MEDS: RIFAXIMIN 550 MG TABLET (UD) PO SCH ×2 (10:08→23:00)
[2020-03-04] MEDS: MULTIVITAMINS (DAILY MVI) TABLET (FP) PO SCH (10:08)
[2020-03-04] MEDS: NICOTINE 14 MG/24 HOURS TOPICAL PATCH TD SCH (10:09)
[2020-03-04 10:11] LABS: BLOOD UREA NITROGEN 6.8 mg/dL (7-18); CALCIUM 7.8 mg/dL (8.5-10.1); CO2 26 mmol/L (21-32); GLUCOSE,RANDOM 70 mg/dL (74-106)
[2020-03-04 10:13] LABS: CREATININE 0.8 mg/dL (0.55-1.3)
[2020-03-04] MEDS: FOLIC ACID 5 MG/1 ML SQ SCH (13:11)
[2020-03-04] MEDS: LORazepam 2 MG/ML SDV VIAL IVPUSH PRN (13:14)
[2020-03-04] MEDS ORDERED: DISP SYRIN IM ONE (15:32)
[2020-03-04] MEDS ORDERED: HEPATITIS A IM ONE (15:32)
[2020-03-04] MEDS ORDERED: [UNRECOGNIZED DRUG - OTHER] IM ONE (15:32)
[2020-03-04 19:54] LABS: INR 1.2 (0.83-1.09); PROTHROMBIN TIME (PATIENT) 14.5 SEC (9.7-13.0)
[2020-03-04 20:03] LABS: ALBUMIN 1.6 g/dl (3.4-5.0)
[2020-03-04 20:06] LABS: BILIRUBIN,DIRECT 12.9 mg/dL (0.0-0.2)
[2020-03-04 20:08] LABS: TOT PROT 5.4 g/dl (6.4-8.2)
[2020-03-04 20:31] LABS: BILIRUBIN,TOTAL 15.4 mg/dL (0.2-1)
[2020-03-05] MEDS: VANCOMYCIN 250 MG/5 ML ORAL SOLUTION PO SCH ×4 (00:30→17:21)
[2020-03-05] MEDS: CHLORHEXIDINE GLUCONATE 4% CLEANSER FOR DECOLONIZATION TP SCH ×2 (02:11→21:46)
[2020-03-05] MEDS ORDERED: DEXTROSE 5%-WATER - 50 ML IVPB ONE ×4 (03:37→21:38)
[2020-03-05] MEDS ORDERED: PIPERACILLIN/TAZOBACTAM 3.375 GM VIAL IVPB ONE ×4 (03:37→21:38)
[2020-03-05] MEDS: PIPERACILLIN/TAZOB 3.375 GM 3.375 GM in DEXTROSE 5%-WATER - 50 ML IVPB SCH ×4 (03:44→21:46)
[2020-03-05] MEDS: HEPARIN NA (PORCINE) 5,000 UNITS/ML 1ML VIAL SQ SCH ×3 (06:30→21:46)
[2020-03-05 07:45] LABS: EOS % 0.9 % (0-4.5); HEMATOCRIT 32.7 % (35.4-49); HEMOGLOBIN 10.7 GM/dL (11.7-16.9); LYMPH % 19.9 % (8-40); MCH 33.2 pg (25.7-33.7); MCHC 32.8 g/dl (32.0-35.9); MEAN CELL VOLUME 101.1 fl (80-96); MEAN PLT VOLUME 9.8 fl (7.5-11.1); MONO % 4.3 % (3.8-10.2); NEUT % 73.9 % (42.8-82.8); PLATELET COUNT 207 K/MM3 (134-434); RBC 3.23 M/mm3 (4.00-5.60); RDW 16.2 % (11.9-15.9); WHITE BLOOD COUNT 18.3 K/mm3 (4.0-10.0)
[2020-03-05 07:50] LABS: INR 1.22 (0.83-1.09); PROTHROMBIN TIME (PATIENT) 14.7 SEC (9.7-13.0)
[2020-03-05 08:13] LABS: POTASSIUM 3.8 mmol/L (3.5-5.1)
[2020-03-05 08:17] LABS: ALBUMIN 1.6 g/dl (3.4-5.0); BLOOD UREA NITROGEN 6.1 mg/dL (7-18); CALCIUM 7.9 mg/dL (8.5-10.1)
[2020-03-05 08:20] LABS: BILIRUBIN,DIRECT 12.7 mg/dL (0.0-0.2); CREATININE 0.8 mg/dL (0.55-1.3)
[2020-03-05 08:22] LABS: TOT PROT 5.4 g/dl (6.4-8.2)
[2020-03-05 08:38] LABS: BILIRUBIN,TOTAL 15.9 mg/dL (0.2-1)
[2020-03-05] MEDS ORDERED: PT OWN MED DRAWER 7, Y5N ONE (09:17)
[2020-03-05] MEDS: FOLIC ACID 5 MG/1 ML SQ SCH (09:19)
[2020-03-05] MEDS: NICOTINE 14 MG/24 HOURS TOPICAL PATCH TD SCH (09:21)
[2020-03-05] MEDS: MULTIVITAMINS (DAILY MVI) TABLET (FP) PO SCH (09:21)
[2020-03-05] MEDS: THIAMINE HCL 200 MG/2 ML VIAL IVPB SCH (09:21)
[2020-03-05] MEDS: RIFAXIMIN 550 MG TABLET (UD) PO SCH ×2 (09:23→21:46)
[2020-03-05 16:28] LABS: ALBUMIN 1.5 g/dl (3.4-5.0); CALCIUM 7.8 mg/dL (8.5-10.1)
[2020-03-05 16:29] LABS: BLOOD UREA NITROGEN 5.8 mg/dL (7-18); POTASSIUM 3.4 mmol/L (3.5-5.1)
[2020-03-05 16:32] LABS: CREATININE 0.7 mg/dL (0.55-1.3)
[2020-03-05 16:33] LABS: TOT PROT 5.4 g/dl (6.4-8.2)
[2020-03-05 16:41] VITALS: BMI 30.1
[2020-03-05 16:42] LABS: BILIRUBIN,TOTAL 15.1 mg/dL (0.2-1)
[2020-03-05 21:05] LABS: INR 1.18 (0.83-1.09); PROTHROMBIN TIME (PATIENT) 14.5 SEC (9.7-13.0)
[2020-03-05 21:15] LABS: ALBUMIN 1.5 g/dl (3.4-5.0)
[2020-03-05 21:18] LABS: BILIRUBIN,DIRECT 12.3 mg/dL (0.0-0.2)
[2020-03-05 21:21] LABS: TOT PROT 5.4 g/dl (6.4-8.2)
[2020-03-05 21:26] LABS: BILIRUBIN,TOTAL 15.3 mg/dL (0.2-1)
[2020-03-06] MEDS ORDERED: PT OWN MED DRAWER 7, Y5N ONE ×3 (00:06→10:13)
[2020-03-06] MEDS: VANCOMYCIN 250 MG/5 ML ORAL SOLUTION PO SCH ×5 (00:08→23:31)
[2020-03-06] MEDS ORDERED: DEXTROSE 5%-WATER - 50 ML IVPB ONE ×4 (03:47→20:07)
[2020-03-06] MEDS ORDERED: PIPERACILLIN/TAZOBACTAM 3.375 GM VIAL IVPB ONE ×4 (03:47→20:07)
[2020-03-06] MEDS: PIPERACILLIN/TAZOB 3.375 GM 3.375 GM in DEXTROSE 5%-WATER - 50 ML IVPB SCH ×4 (04:02→20:29)
[2020-03-06] MEDS: HEPARIN NA (PORCINE) 5,000 UNITS/ML 1ML VIAL SQ SCH ×3 (05:44→20:59)
[2020-03-06 07:18] LABS: BASO % 1.3 % (0-2.0); EOS % 0.8 % (0-4.5); HEMATOCRIT 35.8 % (35.4-49); HEMOGLOBIN 11.8 GM/dL (11.7-16.9); LYMPH % 28.7 % (8-40); MCH 33.8 pg (25.7-33.7); MEAN CELL VOLUME 102.5 fl (80-96); MEAN PLT VOLUME 10.3 fl (7.5-11.1); MONO % 4.8 % (3.8-10.2); NEUT % 64.4 % (42.8-82.8); PLATELET COUNT 290 K/MM3 (134-434); RBC 3.49 M/mm3 (4.00-5.60); RDW 16.5 % (11.9-15.9); WHITE BLOOD COUNT 22.5 K/mm3 (4.0-10.0)
[2020-03-06 07:29] LABS: POTASSIUM 3.4 mmol/L (3.5-5.1)
[2020-03-06 07:30] LABS: INR 1.08 (0.83-1.09); PROTHROMBIN TIME (PATIENT) 13.2 SEC (9.7-13.0)
[2020-03-06 07:31] LABS: ALBUMIN 1.8 g/dl (3.4-5.0); BLOOD UREA NITROGEN 6.5 mg/dL (7-18); CALCIUM 8.2 mg/dL (8.5-10.1); MAGNESIUM 1.7 mg/dL (1.8-2.4)
[2020-03-06 07:34] LABS: CREATININE 0.9 mg/dL (0.55-1.3)
[2020-03-06 07:35] LABS: PHOSPHOROUS 2.2 mg/dL (2.5-4.9)
[2020-03-06 07:36] LABS: TOT PROT 6.8 g/dl (6.4-8.2)
[2020-03-06 08:07] LABS: BILIRUBIN,TOTAL 17.4 mg/dL (0.2-1)
[2020-03-06 08:12] LABS: BILIRUBIN,DIRECT 14.1 mg/dL (0.0-0.2)
[2020-03-06 09:05] LABS: ANISOCYTOSIS 2+; MACROCYTOSIS 2+; PLATELET ESTIMATE NORMAL
[2020-03-06] MEDS: MULTIVITAMINS (DAILY MVI) TABLET (FP) PO SCH (10:03)
[2020-03-06] MEDS: RIFAXIMIN 550 MG TABLET (UD) PO SCH ×2 (10:04→20:59)
[2020-03-06] MEDS: NICOTINE 14 MG/24 HOURS TOPICAL PATCH TD SCH (10:17)
[2020-03-06] MEDS: FOLIC ACID 5 MG/1 ML SQ SCH (10:17)
[2020-03-06] MEDS: THIAMINE HCL 200 MG/2 ML VIAL IVPB SCH (10:31)
[2020-03-06] MEDS ORDERED: MAGNESIUM OXIDE 400 MG TABLET (FP) PO ONE (13:30)
[2020-03-06] MEDS ORDERED: POTASSIUM CHLORIDE TABS 20 MEQ TABLET.ER (FP) PO ONE (13:30)
[2020-03-06] MEDS: CHLORHEXIDINE GLUCONATE 4% CLEANSER FOR DECOLONIZATION TP SCH (20:59)
[2020-03-06 21:34] LABS: INR 1.21 (0.83-1.09); PROTHROMBIN TIME (PATIENT) 14.6 SEC (9.7-13.0)
[2020-03-06 21:58] LABS: ALBUMIN 1.5 g/dl (3.4-5.0)
[2020-03-06 22:01] LABS: BILIRUBIN,DIRECT 11.3 mg/dL (0.0-0.2)
[2020-03-06 22:03] LABS: TOT PROT 5.7 g/dl (6.4-8.2)
[2020-03-06 22:20] LABS: BILIRUBIN,TOTAL 13.6 mg/dL (0.2-1)
[2020-03-07] MEDS ORDERED: PIPERACILLIN/TAZOBACTAM 3.375 GM VIAL IVPB ONE ×3 (01:09→15:19)
[2020-03-07] MEDS ORDERED: DEXTROSE 5%-WATER - 50 ML IVPB ONE ×3 (01:09→15:19)
[2020-03-07] MEDS: PIPERACILLIN/TAZOB 3.375 GM 3.375 GM in DEXTROSE 5%-WATER - 50 ML IVPB SCH ×2 (03:12→09:32)
[2020-03-07] MEDS ORDERED: PT OWN MED DRAWER 7, Y5N ONE ×3 (06:45→21:41)
[2020-03-07] MEDS: HEPARIN NA (PORCINE) 5,000 UNITS/ML 1ML VIAL SQ SCH ×3 (06:49→22:57)
[2020-03-07] MEDS: VANCOMYCIN 250 MG/5 ML ORAL SOLUTION PO SCH ×4 (06:49→23:06)
[2020-03-07 06:54] LABS: BASO % 2.6 % (0-2.0); EOS % 0.8 % (0-4.5); HEMATOCRIT 31.7 % (35.4-49); HEMOGLOBIN 10.4 GM/dL (11.7-16.9); LYMPH % 27.2 % (8-40); MCH 33.4 pg (25.7-33.7); MCHC 32.9 g/dl (32.0-35.9); MEAN CELL VOLUME 101.3 fl (80-96); MEAN PLT VOLUME 10.1 fl (7.5-11.1); MONO % 6.4 % (3.8-10.2); PLATELET COUNT 236 K/MM3 (134-434); RBC 3.12 M/mm3 (4.00-5.60); RDW 16.4 % (11.9-15.9); WHITE BLOOD COUNT 15.1 K/mm3 (4.0-10.0)
[2020-03-07 07:06] LABS: POTASSIUM 3.7 mmol/L (3.5-5.1)
[2020-03-07 07:12] LABS: ALBUMIN 1.6 g/dl (3.4-5.0); BLOOD UREA NITROGEN 5.8 mg/dL (7-18); MAGNESIUM 1.6 mg/dL (1.8-2.4)
[2020-03-07 07:14] LABS: BILIRUBIN,DIRECT 11.8 mg/dL (0.0-0.2)
[2020-03-07 07:15] LABS: CREATININE 0.7 mg/dL (0.55-1.3)
[2020-03-07 07:16] LABS: BILIRUBIN,TOTAL 14.6 mg/dL (0.2-1); TOT PROT 5.9 g/dl (6.4-8.2)
[2020-03-07] MEDS: FOLIC ACID 5 MG/1 ML SQ SCH (09:35)
[2020-03-07] MEDS: NICOTINE 14 MG/24 HOURS TOPICAL PATCH TD SCH (09:36)
[2020-03-07] MEDS: RIFAXIMIN 550 MG TABLET (UD) PO SCH ×2 (09:38→22:57)
[2020-03-07] MEDS: THIAMINE HCL 200 MG/2 ML VIAL IVPB SCH (09:38)
[2020-03-07] MEDS: MULTIVITAMINS (DAILY MVI) TABLET (FP) PO SCH (09:38)
[2020-03-07] MEDS ORDERED: PIPERACILLIN/TAZOB 3.375 GM 3.375 GM in DEXTROSE 5%-WATER - 50 ML IVPB SCH (15:00)
[2020-03-07] MEDS: guaiFENesin 200 MG/10 ML 10 ML UNIT-DOSE CUPS PO PRN (23:07)
[2020-03-08] MEDS ORDERED: PT OWN MED DRAWER 7, Y5N ONE ×2 (05:03→09:20)
[2020-03-08] MEDS: VANCOMYCIN 250 MG/5 ML ORAL SOLUTION PO SCH ×3 (05:05→17:14)
[2020-03-08] MEDS: HEPARIN NA (PORCINE) 5,000 UNITS/ML 1ML VIAL SQ SCH ×3 (05:05→21:43)
[2020-03-08 06:51] LABS: BASO % 1.1 % (0-2.0); HEMATOCRIT 31.3 % (35.4-49); HEMOGLOBIN 10.3 GM/dL (11.7-16.9); MCH 33.6 pg (25.7-33.7); MCHC 32.8 g/dl (32.0-35.9); MEAN CELL VOLUME 102.2 fl (80-96); MEAN PLT VOLUME 9.7 fl (7.5-11.1); MONO % 7.6 % (3.8-10.2); NEUT % 68.3 % (42.8-82.8); PLATELET COUNT 225 K/MM3 (134-434); RBC 3.07 M/mm3 (4.00-5.60); RDW 15.7 % (11.9-15.9); WHITE BLOOD COUNT 13.1 K/mm3 (4.0-10.0)
[2020-03-08 06:57] LABS: INR 1.29 (0.83-1.09); PROTHROMBIN TIME (PATIENT) 15.7 SEC (9.7-13.0)
[2020-03-08 07:07] LABS: POTASSIUM 3.5 mmol/L (3.5-5.1)
[2020-03-08 07:12] LABS: CALCIUM 7.8 mg/dL (8.5-10.1)
[2020-03-08 07:13] LABS: ALBUMIN 1.6 g/dl (3.4-5.0); BLOOD UREA NITROGEN 7.2 mg/dL (7-18); MAGNESIUM 1.4 mg/dL (1.8-2.4)
[2020-03-08 07:15] LABS: BILIRUBIN,DIRECT 10.8 mg/dL (0.0-0.2); CREATININE 0.7 mg/dL (0.55-1.3); PHOSPHOROUS 2.3 mg/dL (2.5-4.9)
[2020-03-08 07:16] LABS: BILIRUBIN,TOTAL 13.2 mg/dL (0.2-1); TOT PROT 5.9 g/dl (6.4-8.2)
[2020-03-08 09:38] LABS: ANISOCYTOSIS 1+; MACROCYTOSIS 0; PLATELET ESTIMATE NORMAL; TEAR DROP CELLS 1+
[2020-03-08] MEDS: MULTIVITAMINS (DAILY MVI) TABLET (FP) PO SCH (09:43)
[2020-03-08] MEDS: NICOTINE 14 MG/24 HOURS TOPICAL PATCH TD SCH (09:43)
[2020-03-08] MEDS: RIFAXIMIN 550 MG TABLET (UD) PO SCH ×2 (09:43→21:43)
[2020-03-08] MEDS: FOLIC ACID 5 MG/1 ML SQ SCH (09:44)
[2020-03-08] MEDS: THIAMINE HCL 200 MG/2 ML VIAL IVPB SCH (09:45)
[2020-03-08] MEDS ORDERED: MAGNESIUM SULF 50% (8.12 MEQ/2 ML-1 GM VIAL) IVPB ONE (10:57)
[2020-03-09] MEDS: VANCOMYCIN 250 MG/5 ML ORAL SOLUTION PO SCH ×4 (00:16→18:27)
[2020-03-09] MEDS: HEPARIN NA (PORCINE) 5,000 UNITS/ML 1ML VIAL SQ SCH ×2 (05:57→14:39)
[2020-03-09 07:27] LABS: BASO % 1.4 % (0-2.0); EOS % 1.5 % (0-4.5); HEMATOCRIT 31.6 % (35.4-49); HEMOGLOBIN 10.4 GM/dL (11.7-16.9); LYMPH % 30.9 % (8-40); MCH 33.6 pg (25.7-33.7); MCHC 32.9 g/dl (32.0-35.9); MEAN CELL VOLUME 102.1 fl (80-96); MEAN PLT VOLUME 9.7 fl (7.5-11.1); MONO % 6.5 % (3.8-10.2); NEUT % 59.7 % (42.8-82.8); PLATELET COUNT 232 K/MM3 (134-434); RBC 3.09 M/mm3 (4.00-5.60); WHITE BLOOD COUNT 11.8 K/mm3 (4.0-10.0)
[2020-03-09 07:35] LABS: INR 1.32 (0.83-1.09); PROTHROMBIN TIME (PATIENT) 15.9 SEC (9.7-13.0)
[2020-03-09 07:36] LABS: ACTIVATED PTT 41.1 SECONDS (25.2-36.5)
[2020-03-09 07:54] LABS: ALBUMIN 1.7 g/dl (3.4-5.0); CALCIUM 8.1 mg/dL (8.5-10.1)
[2020-03-09 07:55] LABS: BLOOD UREA NITROGEN 5.1 mg/dL (7-18)
[2020-03-09 07:58] LABS: CREATININE 0.6 mg/dL (0.55-1.3)
[2020-03-09 07:59] LABS: BILIRUBIN,TOTAL 12.4 mg/dL (0.2-1); TOT PROT 6.1 g/dl (6.4-8.2)
[2020-03-09] MEDS ORDERED: PT OWN MED DRAWER 7, Y5N ONE (10:05)
[2020-03-09] MEDS: FOLIC ACID 5 MG/1 ML SQ SCH (10:07)
[2020-03-09] MEDS: NICOTINE 14 MG/24 HOURS TOPICAL PATCH TD SCH (10:07)
[2020-03-09] MEDS: THIAMINE HCL 200 MG/2 ML VIAL IVPB SCH (10:08)
[2020-03-09] MEDS: MULTIVITAMINS (DAILY MVI) TABLET (FP) PO SCH (10:08)
[2020-03-09 14:55] VITALS: TEMP 99.7
[2020-03-09 17:29] VITALS: BP 137/85; PULSE 98
== END 2020-03-09 21:00 | disposition home or self-care (01) | DRG 710 ==
LOC: JER 07:25 → JERBED 16:06 → JICU 21:51
PROVIDERS: ADMIT Family Medicine; ATTEND Student in an Organized Health Care Education/Training Program
PROC: 0DH673Z Insertion of Infusion Device into Stomach, Via Natural or Artificial Opening (ICD-10-PCS; principal; 2020-02-25)
DX: A41.50 Gram-negative sepsis, unspecified (principal); K72.00 Acute and subacute hepatic failure without coma; K85.20 Alcohol induced acute pancreatitis without necrosis or infection; K83.09 Other cholangitis; A04.72 Enterocolitis due to Clostridium difficile, not specified as recurrent; G92 Toxic encephalopathy; E66.9 Obesity, unspecified; Z68.27 Body mass index [BMI] 27.0-27.9, adult; E80.6 Other disorders of bilirubin metabolism; E83.42 Hypomagnesemia; K70.0 Alcoholic fatty liver; E87.2 Acidosis; F17.210 Nicotine dependence, cigarettes, uncomplicated; F10.239 Alcohol dependence with withdrawal, unspecified; E87.6 Hypokalemia; Z59.0 Homelessness; F10.229 Alcohol dependence with intoxication, unspecified; R74.01 Elevation of levels of liver transaminase levels; K70.10 Alcoholic hepatitis without ascites
CPT/HCPCS: 36415; 70450-TC; 71045-TC-FY; 73502-TC-LT-FY; 74178-TC; 74181-TC; 76705-TC; 80048; 80053; 80061; 80074; 80076; 80307; 81003; 82105; 82140; 82150; 82248; 82550; 82553; 82728; 82803; 83036; 83516; 83540; 83550; 83605; 83690; 83721; 83735; 84100; 84443; 84484; 85025; 85027; 85610; 85730; 86038; 86140; 86301; 86317; 86706; 86708; 87040; 87045; 87046; 87086; 87177; 87186; 87209; 87324; 87449; 93005; 93010; 97116-GP; 97161-GP; 99285-25; C9803; J1644; Q9967; U0003